=== PATIENT | male | born 1945 | race Caucasian/White ===

== ENCOUNTER 2019-11-12 00:08 | Outpatient (CLI) | payer MEDICARE, SELFPAY ==
[2019-11-12 18:28] LABS: SARS-CoV-2 RNA PCR Negative
== END 2019-11-12 00:09 | disposition home or self-care (01) ==
LOC: ANHCOVIDDT 00:09
PROVIDERS: PCP Internal Medicine; Visit Provider Surgery
DX: Z01.812 Encounter for preprocedural laboratory examination (principal); Z11.59 Encounter for screening for other viral diseases
CPT/HCPCS: 87635; C9803; U0003

== ENCOUNTER 2019-11-14 04:23 | Day surgery (SDC) | payer MEDICARE, SELFPAY ==
[2019-11-11 15:42] VITALS: BMI 21.9
[2019-11-14 10:53] VITALS: BP 147/81; PULSE 85; RESP 18; TEMP 36.8; O2SAT 97
[2019-11-14] MEDS: LACTATED RINGERS 1,000 ML 150 ML IV CONT (11:10)
--- NOTE | 2019-11-14 11:41 | P.PNAN_ITS ---
Anes - Initial Pre Proc Eval Procedure: Operation Date: 11/14/19 11:00 Proposed Procedures p Colonoscopy - Neil Merida DO Date/Time: 11/14/19 11:41 Surgeon: Neil Merida DO Pre Op Diagnosis: Poss Cologuard Patient Data Age: 73 Gender: M Height: 5 ft 11 in Weight: 65.1 kg Last Vital Signs Temp 98.3 F 11/14/19 10:53 Pulse 85 11/14/19 10:53 Resp 18 11/14/19 10:53 BP 147/81 H 11/14/19 10:53 Pulse Ox 97 11/14/19 10:53 Allergies Allergy/AdvReac Type Severity Reaction Status Date / Time Penicillins Allergy Intermediate Rash Verified 11/14/19 10:51 Home Medications Medication Instructions Recorded Confirmed Type lisinopril 40 mg PO DAILY 11/11/19 11/11/19 History pantoprazole 40 mg PO DAILY 11/11/19 11/11/19 History pravastatin 10 mg PO DAILY 11/11/19 11/11/19 History Patient hx anesthesia problems: none Family hx anesthesia problems: none [facility] Past Medical History Medical History (Updated 11/14/19 @ 11:41 by Cristofer Villagran MD) Arthritis GERD (gastroesophageal reflux disease) Hyperlipidemia Hypertension Weight decrease unexplained; positive cologuard Social History Social History Smoking packs per day: 1 Smoking cigarettes per day: 20.0 Years smoked: 50 Smoking pack-years: 50.00 Smoking status: Current every day smoker Tobacco type: cigarettes Alcohol intake: current Drinks per week: 42 Alcohol use details: DAILY USE - 6 PER DAY Substance use: never Substance use type: does not use Living arrangements: with friend(s) Spiritual care concerns: No Anes - Eval Final PreProcedure Day of Procedure 11/14/19 11:41 Patient weight: normal Heart: regular rate and rhythm Lungs: clear to auscultation Airway: Mallampati scale class II Neurological: alert and oriented Last oral intake: >/= 8 hours ASA classification: III Emergent: no Anesthetic plan: proceed Anesthesia type and monitoring: general GIVS and standard monitoring Informed Consent: The patient's anesthetic plan and its attendant risks and benefits were discussed with the patient/family/POA. Questions were solicited and answers provided to the satisfaction of the patient/family/POA.
--- NOTE | 2019-11-14 12:04 | PM.IMHP ---
H&P: HPI History of Present Illness Date/Time: 11/14/19 12:04 Chief complaint: Poss Cologuard Narrative: Neil Campbell is a 73 year old male presents with positive cologuard test. He has never had a colonoscopy. Denies hematochezia or melena. No fam hx colon cancer. Review of Systems Review of Systems: All systems reviewed & are unremarkable except as noted in HPI and below Constitutional: Constitutional: Denies chills, Denies fever(s), Denies headache(s) and Denies weight loss Eyes: Eyes: Denies change in vision ENT: Denies dizziness, Denies headache(s), Denies neck mass and Denies throat swelling Cardiovascular: Cardiovascular: Denies chest pain, Denies lightheadedness and Denies dyspnea Respiratory: Respiratory: Denies cough, Denies dyspnea and Denies wheezing Gastrointestinal: Gastrointestinal: Denies abdominal pain, Denies change in bowel habits, Denies nausea and Denies vomiting Genitourinary: Genitourinary: Denies hematuria and Denies dysuria Musculoskeletal: Musculoskeletal: Reports as per HPI Integumentary/Breasts: Skin/Breast: Reports as per HPI Neurologic: Denies dizziness and Denies headache(s) Allergic/Immunologic: Allergic/Immunologic: Denies throat swelling and Denies wheezing ON LICENSE OF [facility] Past Medical History Medical History Arthritis GERD (gastroesophageal reflux disease) Hyperlipidemia Hypertension Weight decrease unexplained; positive cologuard Social History Social History Smoking packs per day: 1 Smoking cigarettes per day: 20.0 Years smoked: 50 Smoking pack-years: 50.00 Smoking status: Current every day smoker Tobacco type: cigarettes Alcohol intake: current Drinks per week: 42 Alcohol use details: DAILY USE - 6 PER DAY Substance use: never Substance use type: does not use Living arrangements: with friend(s) Spiritual care concerns: No Meds Home Medications and Allergies Home Medications Medication Instructions Recorded Confirmed Type lisinopril 40 mg PO DAILY 11/11/19 11/11/19 History pantoprazole 40 mg PO DAILY 11/11/19 11/11/19 History pravastatin 10 mg PO DAILY 11/11/19 11/11/19 History Allergies Allergy/AdvReac Type Severity Reaction Status Date / Time Penicillins Allergy Intermediate Rash Verified 11/14/19 10:51 Vital Signs Vital Signs - 24 hr 11/14/19 10:53 Temperature 36.8 C Pulse Rate 85 Respiratory Rate 18 Blood Pressure 147/81 H Pulse Oximetry 97 Exam Const: General: no acute distress and alert Orientation/consciousness: patient oriented x3 HENMT: Head: normocephalic and atraumatic Ears: hearing grossly normal bilaterally General nose exam: Normal nares present Mouth: Yes Normal oral and palatal mucosa present Eyes: Periorbital: periorbital findings normal Sclera: sclerae normal EOM: EOMs intact bilaterally Neck: Neck: normal visual inspection, no lymphadenopathy and trachea midline Chest: Chest palpation & inspection: normal inspection of the chest Resp: Effort & Inspection: normal respiratory effort Auscultation: clear to auscultation bilaterally Cardio: Jugular venous distension: no JVD Rate: regular rate Rhythm: regular rhythm Heart sounds: S1 normal heart sound present and S2 normal heart sound present Peripheral pulses: Peripheral pulses 2+ throughout GI: Inspection: normal to inspection GI Palp: Yes Soft to palpation, No Tenderness to palpation present (GI), No Guarding due to palpation present (GI) and No Rebound tenderness present Percussion: Yes normal to percussion Auscultation: normal bowel sounds : General: Yes no CVA tenderness Back/Spine/Pelvis: Back: no CVA tenderness Neuro: General: patient oriented x3, no focal motor deficits and CN's II-XI intact bilaterally Cognition (Neuro): normal cognition Speech: normal speech Motor exam (neuro): 5/5 motor strength pr
[2019-11-14 12:59] VITALS: BP 112/58; PULSE 64; RESP 21; O2SAT 100
[2019-11-14 13:09] VITALS: BP 115/53; PULSE 63; RESP 26; O2SAT 100
[2019-11-14 13:17] VITALS: BP 133/53; PULSE 64; RESP 18; O2SAT 100
[2019-11-14] MEDS: DICLOFENAC SODIUM 0.1% OPHTH SOLN 2.5 ML BOTTLE 1 DROP EACH EYE (13:51)
[2019-11-14] MEDS: PROPARACAINE HCL 0.5% 15 ML OPHTH SOLN 1 DROP EACH EYE (13:51)
--- NOTE | 2019-11-14 14:05 | SUR.PHASEII ---
Pt c/o eye watering and feeling scratchy. Dr. Villagran to assess. Corneal abrasion protocol implemented. Pt agreed will see eye doctor if eye isn't improving in the next day or two.
== END 2019-11-14 14:05 | disposition home or self-care (01) ==
PROVIDERS: PCP Internal Medicine; Visit Provider Surgery
PROC: 0DJD8ZZ Inspection of Lower Intestinal Tract, Via Natural or Artificial Opening Endoscopic (ICD-10-PCS; CPT 45378; principal; 2019-11-14 11:00)
DX: R19.5 Other fecal abnormalities (principal); D12.3 Benign neoplasm of transverse colon; D12.0 Benign neoplasm of cecum; K63.5 Polyp of colon; K52.9 Noninfective gastroenteritis and colitis, unspecified; K57.30 Diverticulosis of large intestine without perforation or abscess without bleeding; R63.4 Abnormal weight loss; I10 Essential (primary) hypertension; E78.5 Hyperlipidemia, unspecified; K21.9 Gastro-esophageal reflux disease without esophagitis; F17.210 Nicotine dependence, cigarettes, uncomplicated
CPT/HCPCS: 45380; 45385; 88305; A9270; J2370; J2704; J7120

== ENCOUNTER 2020-06-01 12:38 | Outpatient (CLI) | payer MEDICARE, SELFPAY ==
--- NOTE | ~2020-06-01 | CT_ITS ---
EXAMINATION:CT lung screening DATE: 06/01/2020 12:56 INDICATION: Personal history of tobacco dependence. Current smoker with 54 pack year history. TECHNIQUE: Computed tomography (CT) of the chest was performed without intravenous contrast. Automate d exposure control and iterative reconstruction technique were employed. The dose-length product (DLP ) was 94.55 mGy-cm. COMPARISON: None. FINDINGS: There is mild emphysema. There is mild atelectasis bilaterally. No pleural effusion. The he art size is normal. There are calcifications of the aortic valve. No pericardial effusion. There is m ild thoracic spondylosis. IMPRESSION: 1. Lung-RADS category 1: Negative. Continue annual screening with noncontrast low-dose chest CT in 12 months. Reviewed, dictated and finalized at location A. IMPRESSION: 1. Lung-RADS category 1: Negative. Continue annual screening with noncontrast l ow-dose chest CT in 12 months.
== END 2020-06-01 12:39 | disposition home or self-care (01) ==
LOC: CHSIMG 12:39
PROVIDERS: PCP Internal Medicine; Visit Provider Internal Medicine
DX: Z12.2 Encounter for screening for malignant neoplasm of respiratory organs (principal); Z87.891 Personal history of nicotine dependence
CPT/HCPCS: 71271

== ENCOUNTER 2021-02-16 08:11 | Outpatient (CLI) | payer MEDICARE, SELFPAY ==
[2021-02-16 10:03] LABS: Influenza A QL RT-PCR Negative (Negative); Influenza B QL RT-PCR Negative (Negative); SARS-CoV-2 RNA PCR Negative (Negative)
== END 2021-02-16 08:12 | disposition home or self-care (01) ==
PROVIDERS: PCP Internal Medicine; Visit Provider Internal Medicine
DX: J06.9 Acute upper respiratory infection, unspecified (principal); Z20.822 Contact with and (suspected) exposure to COVID-19
CPT/HCPCS: 87502; C9803; U0003; U0005

== ENCOUNTER 2021-07-11 10:11 | Outpatient (CLI) | payer MEDICARE, SELFPAY ==
--- NOTE | ~2021-07-11 | XR_ITS ---
EXAMINATION: XR hand LT min 3V, XR wrist RT min 3V, XR hand RT min 3V, XR wrist LT min 3V DATE: 07/11/2021 10:49 INDICATION: Bilateral hand pain TECHNIQUE: 1. Posteroanterior, ulnar deviation, oblique, and lateral views of the left wrist were obtained. 2. Dorsal palmar, oblique and lateral views of the left hand were obtained. 3. Posteroanterior, ulnar deviation, oblique, and lateral views of the right wrist were obtained. 2. Dorsal palmar, oblique and lateral views of the right hand were obtained. COMPARISON: None. FINDINGS: Normal alignment at the bilateral hands and wrists. No fractures. Polyarticular osteoarthritis with r edistribution at the bilateral hands and wrists. On the left this is severe at the triscaphe joint an d moderate severity at the first carpometacarpal, first-third metacarpophalangeal and first interphal angeal and second and third distal interphalangeal joints and mild at the distal radioulnar, midcarpa l and remaining metacarpophalangeal and interphalangeal joints. At the right hand and wrist this is s evere at the triscaphe, first carpometacarpal and second metacarpophalangeal joints, moderate severit y at the first and third metacarpophalangeal, first interphalangeal and second distal interphalangeal joint and mild at the distal radioulnar and remaining interphalangeal joints. No erosions to suggest inflammatory arthritis. Diffuse osteopenia. Mild peripheral reticular soft tissue swelling at the me tacarpophalangeal and interphalangeal joints. IMPRESSION: 1. 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 Reviewed, dictated and finalized at location A. IMPRESSION: 1. 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 IMPRESSION: 1. 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 IMPRESSION: 1. 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
== END 2021-07-11 10:12 | disposition home or self-care (01) ==
LOC: CHSIMG 10:14
PROVIDERS: PCP Internal Medicine; Visit Provider Internal Medicine
DX: M79.642 Pain in left hand (principal); M79.641 Pain in right hand
CPT/HCPCS: 73110; 73130

== ENCOUNTER 2021-07-26 12:23 | Outpatient (CLI) | payer MEDICARE, SELFPAY ==
--- NOTE | ~2021-07-26 | CT_ITS ---
EXAMINATION:CT lung screening DATE: 07/26/2021 12:42 INDICATION: Personal history of nicotine dependence. Current smoker with 55 pack year history. TECHNIQUE: Computed tomography (CT) of the chest was performed without intravenous contrast. Automate d exposure control and iterative reconstruction technique were employed. The dose-length product (DLP ) was 118.43 mGy-cm. COMPARISON: Chest CT 06/01/2020 FINDINGS: There is mild emphysema. There is mild atelectasis bilaterally. No pleural effusion. The he art size is normal. There are coronary artery calcifications. There are calcifications of aortic valv e. No pericardial effusion. There is severe cervical spondylosis and mild thoracic spondylosis. IMPRESSION: 1. Lung-RADS category 1: Negative. Continue annual screening with noncontrast low-dose chest CT in 12 months. Reviewed, dictated and finalized at location A. IMPRESSION: 1. Lung-RADS category 1: Negative. Continue annual screening with noncontrast l ow-dose chest CT in 12 months.
--- NOTE | ~2021-07-26 | US_ITS ---
EXAMINATION: US carotid duplex BI DATE: 07/26/2021 12:53 INDICATION: TECHNIQUE: Grayscale, color Doppler, and pulsed Doppler images of the cervical carotid arteries were obtained. The degree of vessel stenosis is placed in one of the following categories: normal, <50%, 5 0-69%, >=70% but less than near-occlusion, near-occlusion, or total occlusion. Note that percent sten osis relative to normal distal artery lumen diameter is indirectly measured from velocity measurement s as described by Thomas, et al. Radiology 2003; 229:340-346. Notes: Normal: Peak systolic velocity <125 centimeters/sec and no plaque <50%. Peak systolic velocity <125 ( EDV <40; ICA/CCA PSV ratio <2.0; used these factors only a tandem lesions or low cardiac output or co ntralateral disease) 50-69 %: PSV 125-230 (EDV 40-100; ratio 2-4) >= 70% but less than near occlusion: PSV greater than 230 (EDV > 100; ratio> 4.0) Near Occlusion: PSV that is variable; markedly narrowed lumen Occlusion: Absent flow on color/spectral Doppler and no lumen on metcalf scale. COMPARISON: None. FINDINGS: RIGHT: The right common carotid artery (CCA) peak systolic velocity (PSV) is 82 cm/s. The right internal car otid artery (ICA) PSV is 88 cm/s. The right ICA end-diastolic velocity (EDV) is 22 cm/s. The right IC A/CCA PSV ratio is 1.1. The external carotid artery (ECA) PSV is 137 cm/s. There is antegrade flow in the right vertebral artery. LEFT: The left CCA PSV is 100 cm/s. The left ICA PSV is 103 cm/s. The left ICA EDV is 31 cm/s. The left ICA /CCA PSV ratio is 1.0. The ECA PSV is 156 cm/s. There is antegrade flow in the left vertebral artery . IMPRESSION: 1. Less than 50% stenosis in the right internal carotid artery by sonographic criteria. 2. Less than 50% stenosis in the left internal carotid artery by sonographic criteria. Reviewed, dictated and finalized at location A. IMPRESSION: 1. Less than 50% stenosis in the right internal carotid artery by sonographic kamlesh anderson. 2. Less than 50% stenosis in the left internal carotid artery by sonographic virginia gonzalez.
--- NOTE | ~2021-07-26 | US_ITS ---
US arterial ankle brachial ind INDICATION: Carotid stenosis. Peripheral arterial disease. TECHNIQUE: Segmental pressures and plethysmographic and Doppler waveforms of the brachial and lower e xtremity arteries were obtained. COMPARISON: None. FINDINGS: Right and left brachial artery pressures of 143 mm Hg and 150 mm Hg, respectively, are concordant (no rmal difference <= 30 mmHg). The right ankle-brachial index (IVIS) is 1.09 (normal >= 0.9-1.0). The right great toe-brachial index (TBI) is 0.91 (normal >= 0.60). The left IVIS is 1.08. The left TBI is 0.95. IMPRESSION: 1. Normal bilateral ankle-brachial indices. Reviewed, dictated and finalized at location A.
== END 2021-07-26 12:24 | disposition home or self-care (01) ==
LOC: CHSIMG 12:25
PROVIDERS: PCP Internal Medicine; Visit Provider Internal Medicine
DX: Z12.2 Encounter for screening for malignant neoplasm of respiratory organs (principal); Z87.891 Personal history of nicotine dependence; I65.23 Occlusion and stenosis of bilateral carotid arteries; I73.9 Peripheral vascular disease, unspecified; I35.0 Nonrheumatic aortic (valve) stenosis
CPT/HCPCS: 71271; 93880; 93922

== ENCOUNTER 2021-08-01 13:20 | Outpatient (CLI) | payer MEDICARE, SELFPAY ==
--- NOTE | 2021-08-01 01:00 | ECHO_ITS ---
Patient Info Name: Neil Campbell Age: 75 years : 1945 Gender: Male Ht: 70 in Wt: 180 lbs BSA: 2.02 m2 HR: 69 bpm BP: 159 / 83 mmHg Heart Rhythm: Sinus Arrhythmia Technical Quality: Fair Exam Date: 08/01/2021 1:18 PM Exam Location: [facility] Patient Status: Outpatient Admit Date: 08/01/2021 Staff Ordering Physician: Mayur Lynn MD Help Desk Rep: Radha Harris RDCS Attending Provider: Mayur Lynn MD Referring Physician: Shane CHRISTIAN; Exam Type: CA echo doppler color flow Study Info Indications - Aortic stenosis Complete two-dimensional, color flow and Doppler transthoracic echocardiogram is performed. Summary 1. Complete two-dimensional, color flow and Doppler transthoracic echocardiogram is performed. 2. Left ventricular chamber dimension is normal. 3. Left ventricular systolic function is normal, estimated at 65-70%. 4. There is mildly increased left ventricular wall thickness. 5. The left ventricular diastolic function is grade I diastolic dysfunction. 6. E/e' 13 is mildly elevated. 7. Left atrial chamber dimension is mildly enlarged. 8. 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 9. There is mild aortic valve stenosis with a peak velocity of 228 cm/s, mean gradient of 10 mmHg, and aortic valve area of 1.9 cm2. 10. The mitral valve has mildly calcified annulus. 11. There is trace tricuspid valve regurgitation. 12. No pulmonary hypertension, estimated pulmonary arterial systolic pressure is 33 mmHg. 13. There is trace pulmonic regurgitation. Left Ventricle E/e' 13 is mildly elevated. Left ventricular chamber dimension is normal. Left ventricular systolic function is normal, estimated at 65-70%. There is mildly increased left ventricular wall thickness. The left ventricular diastolic function is grade I diastolic dysfunction. Right Ventricle Right ventricular systolic function is normal and with normal TAPSE 2.0 cm. Right ventricular chamber dimension is normal. Left Atria Left atrial chamber dimension is mildly enlarged. Right Atria Right atrial chamber dimension is normal. Aortic Valve The aortic valve is trileaflet. 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 There is mild aortic valve stenosis with a peak velocity of 228 cm/s, mean gradient of 10 mmHg, and aortic valve area of 1.9 cm2. There is no aortic valve regurgitation. Pulmonic Valve There is trace pulmonic regurgitation. Mitral Valve The mitral valve has mildly calcified annulus. There is no mitral valve stenosis. There is no mitral valve regurgitation. Tricuspid Valve There is trace tricuspid valve regurgitation. No pulmonary hypertension, estimated pulmonary arterial systolic pressure is 33 mmHg. Pericardium/Pleural There is no pericardial effusion. Inferior Vena Cava Normal inferior vena cava with >50% collapse upon inspiration consistent with normal right atrial pressure, 5 mmHg. Aorta The aortic root size at the sinus of Valsalva is normal. Left Ventricular Outflow Tract Name Value Normal LVOT 2D LVOT Diameter 2.0 cm LVOT Doppler LVOT Peak Velocity 121 cm/s
== END 2021-08-01 13:21 | disposition home or self-care (01) ==
PROVIDERS: PCP Internal Medicine; Visit Provider Internal Medicine
DX: I35.0 Nonrheumatic aortic (valve) stenosis (principal)
CPT/HCPCS: 93306

== ENCOUNTER 2022-05-24 13:18 | Outpatient (CLI) | payer MEDICARE, SELFPAY ==
--- NOTE | ~2022-05-24 | XR_ITS ---
Left wrist Technique: PA, oblique, lateral, and ulnar deviation views were obtained. Clinical History: Pain Findings: No acute fracture or dislocation is seen. There is moderate degenerative change at the STT articulations and first carpometacarpal joint. Soft tissues are unremarkable. Impression: Moderate degenerative change at the STT articulations and first carpal metacarpal joint. Reviewed, dictated and finalized at location . Impression: Moderate degenerative change at the STT articulations and first carpal metacarp al joint.
== END 2022-05-24 13:19 | disposition home or self-care (01) ==
LOC: CHSIMG 13:24
PROVIDERS: PCP Internal Medicine; Visit Provider Internal Medicine
DX: S69.92XA Unspecified injury of left wrist, hand and finger(s), initial encounter (principal)
CPT/HCPCS: 73110

== ENCOUNTER 2022-09-05 08:43 | Outpatient (CLI) | payer MEDICARE, SELFPAY ==
--- NOTE | ~2022-09-05 | CT_ITS ---
CT Scan of the Chest without Contrast: Clinical Indication: Lung cancer screening, personal history of nicotine dependence Technique: Contiguous sections were acquired throughout the chest without intravenous contrast. Dose reduction technique was used on this scan by utilizing automated exposure control and iterative recon struction technique. The dose-length product (DLP) was 103.12 mGy-cm. COMPARISON: 07/26/2021, 06/01/2020 Findings: There is no evidence of any significant mediastinal, hilar or axillary lymphadenopathy. The mediastin al soft tissues appear normal. There is no evidence of pleural or pericardial effusion. The lungs are clear. No pulmonary nodules or infiltrates are noted. Images through the upper abdomen reveal no abnormalities. Impression: Lung RADS 1: Negative. 12 month follow-up screening CT advised. Reviewed, dictated and finalized at [facility]. Impression: Lung RADS 1: Negative. 12 month follow-up screening CT advised.
== END 2022-09-05 08:44 | disposition home or self-care (01) ==
LOC: CHSIMG 08:46
PROVIDERS: PCP Internal Medicine; Visit Provider Internal Medicine
DX: Z12.2 Encounter for screening for malignant neoplasm of respiratory organs (principal); Z87.891 Personal history of nicotine dependence
CPT/HCPCS: 71271

== ENCOUNTER 2023-04-17 13:18 | Outpatient (CLI) | payer MEDICARE, SELFPAY ==
--- NOTE | ~2023-04-17 | PE_ITS ---
EXAMINATION: PET_PETPSMAST_PT DATE: 04/17/2023 16:04 INDICATION: Prostate cancer TECHNIQUE: 9.534 mCi of pipflufolastat F-18 (18-F-DCFPyL) was administered i.v. Low dose computed to mography (CT) images were acquired from the base of the brain to the base of the brain to the proxima l thighs for attenuation correction and anatomic localization. Positron emission tomography (PET) airam ges were acquired in the same distribution beginning 102 minutes after injection. Images including fu sed PET/CT images were reconstructed in axial, coronal, and sagittal planes. Automated exposure contr ol technique was employed. The dose-length product was 566.24mGy-cm. COMPARISON: None FINDINGS: Head/neck: Typical pattern of symmetric physiologic increased activity in the lacrimal, parotid and submandibula r glands as well as along the mucosa of the nasal and oral cavities, the ankush-, naso- and hypopharynx, the glottis and esophagus. There is also a typical pattern of symmetric tiny foci of mild likely phy siologic neural ganglia uptake at a few bilateral cervical neural foramina. No pathologically enlarge d cervical lymphadenopathy or suspicious foci of increased uptake in the visualized head or neck. Chest: Mild emphysema. Mild dependent atelectasis in bilateral lower lobes. No suspicious pulmonary nodules, pneumonia, pulmonary edema or pleural effusion. Heart size is normal. Atherosclerotic coronary arter y and aortic valve calcific lesion. Thoracic aorta is normal in caliber. No pathologically enlarged o r PSMA avid thoracic lymphadenopathy. Abdomen/pelvis/proximal thighs: Physiologic renal accumulation and excretion of activity in the kidneys, bladder and along portions o f ureters. A couple low-attenuation photopenic exophytic cyst at the right kidney the larger measurin g 2.8 cm. 1 cm region of prominent increased PSMA activity at the right side of the prostate with max imal SUV of 54.8 with extension of small region of mild uptake more posteriorly and inferiorly on the right side of the prostate consistent with primary prostate cancer. Normal degree and slightly heter ogenous pattern of increased uptake throughout the liver and spleen without radiologic correlate or d ominant PSMA avid lesion. The gallbladder, pancreas and bilateral adrenal glands are normal. Moderate uptake scattered throughout the bowels with typical duodenal and proximal jejunal predominance and w ithout radiologic correlate, also likely physiologic. Is at the lower cervical spine there is a typic al pattern of tiny foci of mild uptake at the lower lumbar and upper sacral neural foramina likely re presenting physiologic uptake at the neural ganglia. No other abnormal foci of increased uptake or pa thologically enlarged lymphadenopathy in the abdomen, pelvis or proximal thighs. Musculoskeletal: No suspicious lytic, blastic or PSMA avid bone lesions. IMPRESSION: 1. Small focus of marked uptake at the right side of the prostate consistent with known primary prost ate cancer. No evident metastatic disease. Reviewed, dictated and finalized at location A. [employer] IMPRESSION: 1. Small focus of marked uptake at the right side of the prostate consistent wi th known primary prostate cancer. No evident metastatic disease.
== END 2023-04-17 13:19 | disposition home or self-care (01) ==
PROVIDERS: PCP Internal Medicine; Visit Provider Urology
DX: C61 Malignant neoplasm of prostate (principal)
CPT/HCPCS: 78815; A9595

== ENCOUNTER 2024-10-01 09:10 | Outpatient (CLI) | payer MEDICARE, SELFPAY ==
[2024-10-01 10:44] LABS: Prostate Specific Antigen 0.1 ng/mL (< OR = 4.0)
[2024-10-06 00:07] LABS: Testosterone, Total, LC/MS 305 ng/dL (.)
== END 2024-10-01 09:11 | disposition home or self-care (01) ==
LOC: CHSLAB 09:13
PROVIDERS: PCP Internal Medicine; Visit Provider Nurse Practitioner
DX: C61 Malignant neoplasm of prostate (principal); Z12.5 Encounter for screening for malignant neoplasm of prostate
CPT/HCPCS: 36415; 84153; 84403; G0103

== ENCOUNTER 2024-10-28 14:49 | Outpatient (CLI) | payer MEDICARE, SELFPAY ==
--- NOTE | 2024-10-28 14:55 | ECHO_ITS ---
Patient Info Name: Neil Campbell Age: 78 years : 1945 Gender: Male Ht: 71 in Wt: 160 lbs BSA: 1.90 m2 HR: 82 bpm BP: 163 / 67 mmHg Technical Quality: Good Exam Date: 10/28/2024 2:58 PM Patient Status: O Admit Date: 10/28/2024 Exam Type: CA echo doppler color flow Complete two-dimensional, color flow and Doppler transthoracic echocardiogram is performed. Broadcast Maintenance Engineer: Kath Franks Attending Provider: Mayur Lynn MD Summary 1. Complete two-dimensional, color flow and Doppler transthoracic echocardiogram is performed. 2. Left ventricular chamber dimension is normal. 3. Left ventricular systolic function is normal, estimated at 60-65. 4. The left ventricular diastolic function is grade I diastolic dysfunction. 5. E/e' 8 is minimally elevated. 6. Left atrial chamber dimension is mildly enlarged. 7. 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 8. There is very mild aortic valve stenosis with a peak velocity of 230 cm/s, mean gradient of 9 mmHg, and aortic valve area of 2.2 cm2. 9. 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 10. No pulmonary hypertension, estimated pulmonary arterial systolic pressure is 37 mmHg. Left Ventricle E/e' 8 is minimally elevated. Left ventricular chamber dimension is normal. Left ventricular systolic function is normal, estimated at 60-65. The left ventricular diastolic function is grade I diastolic dysfunction. Right Ventricle Right ventricular chamber dimension is normal. Right ventricular systolic function is normal. Left Atria Left atrial chamber dimension is mildly enlarged. Right Atria Right atrial chamber dimension is normal. Aortic Valve The aortic valve is trileaflet. 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 There is very mild aortic valve stenosis with a peak velocity of 230 cm/s, mean gradient of 9 mmHg, and aortic valve area of 2.2 cm2. There is no aortic valve regurgitation. Pulmonic Valve There is no pulmonic regurgitation. Mitral Valve There is no mitral valve stenosis. There is no mitral valve regurgitation. Tricuspid Valve There is mild to moderate tricuspid valve regurgitation. No pulmonary hypertension, estimated pulmonary arterial systolic pressure is 37 mmHg. Pericardium/Pleural There is no pericardial effusion. Inferior Vena Cava Normal inferior vena cava with >50% collapse upon inspiration consistent with normal right atrial pressure, 5 mmHg. Aorta The aortic root size at the sinus of Valsalva is normal. Left Ventricular Outflow Tract Name Value Normal LVOT 2D LVOT Diameter 1.9 cm LVOT Doppler LVOT Peak Velocity 176 cm/s LVOT Peak Gradient 12 mmHg LVOT Mean Gradient 6 mmHg LVOT VTI 41 cm LVOT VTI/AV VTI Ratio 0.8 LVOT Stroke Volume 114 ml LVOT CO 13.7 l/min LVOT CI 7.2 l/min/m2 Pulmonic Valve Name Value Normal RVOT Doppler RVOT Peak Velocity 65 cm/s RVOT Peak Gradient 2 mmHg PV Doppler PV Peak Velocity 124 cm/s PV Peak Gradient 6 mmHg Mitral Valve Name Value Normal MV Diastolic Function MV E Peak Velocity 88 cm/s MV A Peak Velocity 114 cm/s MV E/A 0.8 MV Decel Time (PW) 222 ms MV Annular TDI MV E/e' (Septal) 9.2 MV E/e' (Lateral) 7.5 MV E/e' (Average) 8.4 Tricuspid Valve Name Value Normal TV Regurgitation Doppler TR Peak Velocity 283 cm/s TR Peak Gradient 32 mmHg Estimated PAP/RSVP RA Pressure 5 mmHg <=5 PA Systolic Pressure 37 mmHg <36 RV Systolic Pressure 37 mmHg <36 Aortic Valve Name Value Normal AV Doppler AV Peak Velocity 230 cm/s AV Peak Gradient 15 mmHg AV Mean Gradient 9 mmHg AV VTI 52 cm AV Area (Cont Eq VTI) 2.2 cm2 >=3.0 AV Area (Cont Eq Shreyas) 2.1 cm2 AV DI (Shreyas) 0.77 AV Regurgitation 2D LVOT Area 2.8 cm2 Ventricles Name Value Normal LV Dimensions 2D/MM IVS Diastolic Thickness (2D) 0.9 cm 0.6-1.0 LVID Diastole (2D) 4.6 cm 4.2-5.8 LVIW Diastolic Thickness (2D) 0.5 cm 0.6-1.0 LVID Systole (2D) 3.1 cm 2.5-4.0 LVOT Diameter 1.9 cm LV Mass (2D Cubed) 102.18 g 88.00-224.00 LV Mass Index (2D Cubed) 54 g/m2 49-115 Relative Wall Thickness (2D) 0.24 <=0.42 LV Fractional Shortening/Ejection Fraction 2D/MM LV Fractional Shortening (2D) 33 % 25-43 LV EF (2D Teichholz) 61 % LV Diastolic Volume (4C MOD) 95 ml LV EF (4C MOD) 62 % LV Diastolic Volume (2C MOD) 108 ml LV EF (2C MOD) 55 % LV Diastolic Volume (BP MOD) 101 ml 62-150 LV Diastolic Volume Index (BP MOD) 53 ml/m2 34-74 LV Systolic Volume (BP MOD) 42 ml 21-61 LV Systolic Volume Index (BP MOD) 22 ml/m2 11-31 LV EF (BP MOD) 59 % 52-72 LV Diastolic Length (4C) 7.5 cm LV Systolic Length (4C) 6.4 cm LV Stroke Volume (4C MOD) 59 ml Atria Name Value Normal LA Dimensions LA Volume (4C A-L) 41 ml LA Volume (BP A-L) 56 ml RA Dimensions RA Systolic Major [place] Length (4C) 5.3 cm 2.1-2.7 RA Area (4C) 14.8 cm2 <=18.0 Report Signatures
== END 2024-10-28 14:50 | disposition home or self-care (01) ==
LOC: CHSIMG 14:51
PROVIDERS: PCP Internal Medicine; Visit Provider Internal Medicine
DX: I35.0 Nonrheumatic aortic (valve) stenosis (principal); I08.2 Rheumatic disorders of both aortic and tricuspid valves
CPT/HCPCS: 93306